=== PATIENT | female | born 1985 | race Caucasian/White ===

== ENCOUNTER 2018-06-11 20:17 | Emergency (ER) | payer OTHER ==
[~2018-06-11] VITALS: Ht 160 cm; Wt 98.0 kg
[2018-06-11] MEDS ORDERED: SYNTHROID88 MCG (20:45)
[2018-06-11] MEDS ORDERED: AVAPRO150 MG (20:45)
[2018-06-11] MEDS ORDERED: ASA81 MG (20:46)
== END 2018-06-11 22:43 | disposition home or self-care (01) ==
LOC: ER 20:17
DX: M71.571 Other bursitis, not elsewhere classified, right ankle and foot (principal)

== ENCOUNTER 2019-08-30 16:39 | Emergency (ER) | payer OTHER ==
[~2019-08-30] VITALS: Ht 160 cm; Wt 86.2 kg
[~2019-08-30 16:39] MED LIST: ASA81 MG; AVAPRO150 MG; SYNTHROID88 MCG
[2019-08-30] MEDS ORDERED: PROZAC40 MG (16:48)
== END 2019-08-30 19:38 | disposition home or self-care (01) ==
LOC: ER 16:39
DX: M54.5 Low back pain (principal); M79.652 Pain in left thigh; M79.18 Myalgia, other site

== ENCOUNTER 2021-08-27 12:25 | Outpatient (CLI) | payer OTHER ==
[~2021-08-27 12:25] MED LIST changes: +PROZAC40 MG
== END 2021-08-27 12:34 | disposition home or self-care (01) ==
LOC: RAD 12:25
DX: M99.01 Segmental and somatic dysfunction of cervical region (principal); M99.02 Segmental and somatic dysfunction of thoracic region

== ENCOUNTER 2022-03-03 12:10 | Outpatient (CLI) | payer OTHER | END 2022-03-03 12:21 | disposition home or self-care (01) | LOC: RAD 12:10 | PROVIDERS: ATTEND Internal Medicine Rheumatology | DX: M25.50 Pain in unspecified joint (principal); R05.9 Cough, unspecified ==

== ENCOUNTER 2022-07-04 13:51 | Outpatient (CLI) | payer OTHER | END 2022-07-04 14:01 | disposition home or self-care (01) | LOC: RAD 13:51 | PROVIDERS: ATTEND General Practice | DX: U07.1 COVID-19 (principal) ==

== ENCOUNTER 2025-04-13 11:57 | Outpatient (CLI) | payer OTHER ==
[~2025-04-13 11:57] MED LIST changes: +MEDROLPACK PO
== END 2025-04-13 12:06 | disposition home or self-care (01) ==
LOC: SONOGRAMA 11:57
PROVIDERS: ATTEND Internal Medicine Endocrinology, Diabetes & Metabolism
DX: E04.8 Other specified nontoxic goiter (principal)